=== PATIENT | female | born 1980 | race Caucasian/White ===

== ENCOUNTER 2018-10-25 14:21 | Emergency (ER) | payer SELFPAY ==
--- NOTE | 2018-10-25 14:28 | PDOC ---
Rapid Medical Evaluation Time Seen by Provider: 10/25/18 14:25 Medical Evaluation: 10/25/18 14:25 I have briefly examined the patient Pt reports she is 12 weeks and had vaginal bleeding last night. States that she passed a blood clot and she is concerned she had a miscarriage. States she had an US in August which confirmed an IUP. LMP: 07/28/18 Exam: NAD, ambulatory Orders: labs, urine TVUS Pt to proceed to the ER for further evaluation Discharge Disposition - Diagnosis Vaginal bleeding - Referrals - Patient Instructions - Post Discharge Activity
[2018-10-25 14:32] VITALS: BP 116/75; PULSE 80; TEMP 98.2; BMI 21.5
--- NOTE | 2018-10-25 15:25 | PDOC ---
History of Present Illness - General Chief Complaint: Vaginal Bleeding Stated Complaint: VAGINAL BLEEDING Time Seen by Provider: 10/25/18 14:25 - History of Present Illness Initial Comments: Ele Ayers is an otherwise healthy 38yo woman at 12wks by US (completed in August at outpatient OB) who presents with 2 weeks of painless light vaginal spotting, now reporting much heavier bleeding with clots this morning. She states that she tried to see her OB for the spotting, but due to change in insurance was unable to make an appointment. She has not yet been able to establish care with a new OB. She was not overly concerned about the spotting due to having no associated symptoms, but she states that the bleeding today was a significant change. The bleeding was dark red w/ several large clots. She has had continued bleeding throughout the day. Ms Nunez continues to deny any abdominal or back pain. with the vaginal bleeding. She reports that her first was uncomplicated, and she has not had any problems so far with the current . Past History - Past Medical History Allergies/Adverse Reactions: Allergies Allergy/AdvReac Type Severity Reaction Status Date / Time No Known Allergies Allergy Verified 10/25/18 14:27 Home Medications: Ambulatory Orders NK [No Known Home Medication] 10/25/18 - Suicide/Smoking/Psychosocial Hx Smoking History: Never smoked Review of Systems - Review of Systems Comments:: General: No fevers, no chills, no weight or appetite change, no malaise HEENT: No changes in vision, no changes in hearing, no congestion, no sore throat CV: No chest pain, no palpitations, no LE edema Pulm: No SOB, no cough, no wheezing GI: No nausea or vomiting, no change in bowel habits, no melena : No frequency, no urgency, no dysuria Musc: No back pain, no joint swelling, no recent injury Skin: No rash, no lesions, no erythema Endo: No excessive thirst, no heat/cold intolerance Heme: No unusual bruising or bleeding, no swollen glands Neuro: No syncope, no numbness/tingling, no focal weakness Vasc: No claudication Psych: No recent change in mood, no SI or HI *Physical Exam - Vital Signs Last Vital Signs Temp Pulse Resp BP Pulse Ox 98.2 F 80 18 116/75 98 10/25/18 14:23 10/25/18 14:23 10/25/18 14:23 10/25/18 14:23 10/25/18 14:23 - Physical Exam Comments: General: Comfortable, no acute distress HEENT: PERRL, EOMI, MMM, voice normal, normal neck ROM, no LAD Cards: RRR, no murmur appreciated Pulm: Comfortable on room air, clear to auscultation bilaterally Abd: Soft, nontender, nondistended : Normal external genitalia. Moderate red blood with small clots noted in vaginal canal. No CMT, no adnexal tenderness. Internal os closed to palpation. Ext: Atraumatic. No LE edema. ROM intact. Vasc: Extremities WWP. Skin: Normal color, no rashes or lesions Neuro: A&Ox3, CN grossly intact, normal speech, motor/sensory grossly intact and symmetric Psych: Mood appropriate to situation ED Treatment Course - LABORATORY CBC & Chemistry Diagram: 10/25/18 15:43 10/25/18 15:43 Medical Decision Making - Medical Decision Making 10/25/18 15:25 Attempted to see patient. Has been taken to ultrasound. Will evaluate when returned. 10/25/18 16:10 Seen following return from US Ele Ayers is an otherwise healthy 38yo woman at 12wks gestation by US who presents with heavy vaginal bleeding with large clots this morning after 2 weeks of light spotting. She was seen by OB about 2 months ago but was lost to follow up due to insurance difficulties. - Concerning for threatened v complete v incomplete v missed . Os closed on vaginal exam, so not inevitable - US and labs ordered in [facility]. US completed prior to being seen. Reviewed in ED. No fetus seen, but radiology report pending - Labs to be reviewed when completed. Pt reports her blood type is B+, but confirmation T&S sent. 10/25/18 18:06 - US completed. Shows gestational sac measuring approximately 8 weeks w/o yolk sac. Radiology report suggests anembrionic . Labs notable for bHCG of 90. With patient report of 2 wks of spotting, now passing larger amounts of blood, concerning for demise several weeks ago with passage of products today. Appears to be a complete . - Multiple calls placed to OB, Dr Bates, for recommendations. Have not received call back. Call placed to Dr Vick for assistance in contacting on- call OB. 10/25/18 18:48 - Spoke to Ms Nunez at length regarding the ultrasound and lab findings. She understands the findings and also that she needs to follow up with OB gyne. She and her were visibly upset by the miscarriage. - Type and screen not resulted. Spoke to blood bank, report they need a new sample. After being told about the miscarriage, Ms Nunez declined to remain in the ED for a second T&S to be sent. As stated blood type is B+ would not need rhogam, but advised regarding reasons for completing test. Given thorough information regarding return precautions and OB/gyne referrals for follow up within the next week. Discussed with Sheeba Ho and Rishabh. Yu Oviedo PGY1 10/25/18 18:52 *DC/Admit/Observation/Transfer Diagnosis at time of Disposition: Complete - Discharge Dispostion Disposition: HOME Condition at time of disposition: Stable Decision to Admit order: No - Referrals Referrals: Sri Argueta MD [Staff Physician] - Nery Burgess MD [Staff Physician] - Carson Sloan MD [Staff Physician] - Isela Ortega MD [Staff Physician] - Briseyda Sherman MD [Staff Physician] - Jared Bates MD [Staff Physician] - - Patient Instructions Printed Discharge Instructions: DI for Miscarriage Additional Instructions: Discharge Instructions: You were seen in the ED for vaginal bleeding, and it was found that you had a miscarriage. Based on your ultrasound and lab results, it is most likely that the terminated ( demise) several weeks ago. Miscarriage occurs in up to 15-20% of all pregnancies and is not caused by anything that you did or did not do. Often, it is due to a problem with the itself that cannot be predicted. You should follow up with an OB/gyne doctor within the next week. See the attached list of names to schedule an appointment to make sure you are recovering well. Seek immediate care if you have continued vaginal bleeding that is much heavier than a period, you have abdominal/back pain that cannot be controlled with ibuprofen/acetaminophen at home, you have severe nausea or vomiting, you have fevers to 101F, you have foul-smelling vaginal discharge, or you have any sign of infection. - Post Discharge Activity
--- NOTE | 2018-10-25 16:24 | PDOC ---
Documentation entered by Ward Awan SCRIBE, acting as scribe for See Ho MD. See Ho MD: This documentation has been prepared by the Emperatriz sage Renju, SCRIBE, under my direction and personally reviewed by me in its entirety. I confirm that the documentation accurately reflects all work, treatment, procedures, and medical decision making performed by me. Attending Attestation - Resident Resident Name: Yu Oviedo - HPI HPI: 10/25/18 16:02 The patient is a 38 year old female, currently 12 weeks , with no past medical history, who presents to the emergency department for evaluation of vaginal bleeding. Patient reports a two week history of painless spotting. She reports waking up this morning, noting a large amount of vaginal bleeding with clots. Patient states she visits the emergency department today due to a concern for a possible miscarriage. 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 Patient denies any other symptoms or pain at this time. - Physicial Exam PE: 10/25/18 16:22 VSS pelvic per resident, os closed, no discharge abd soft/nd. no suprapubic discomfort to palpation, no guarding/rebound - Medical Decision Making 10/25/18 16:23 38y/o F at 12wks gestation with heavy vaginal bleeding with clots and likely POC. HD stable here without heavy active bleeding. labs sent including t+s ultrasound reassess 10/25/18 17:25 labs wnl, hcg 91, suggestive of miscarriage that was not recent. evus with empty sac, will consult [facility]. t+s pending
[2018-10-25 16:25] LABS: BASO % 0.8 % (0-2.0); EOS % 2.3 % (0-4.5); HEMATOCRIT 40.7 % (32.4-45.2); HEMOGLOBIN 13.5 GM/dL (10.7-15.3); MCH 30.2 pg (25.7-33.7); MCHC 33.2 g/dl (32.0-36.0); MEAN CELL VOLUME 90.9 fl (80-96); MEAN PLT VOLUME 8.5 fl (7.5-11.1); NEUT % 53.9 % (42.8-82.8); PLATELET COUNT 196 K/MM3 (134-434); RBC 4.47 M/mm3 (3.60-5.2); RDW 13.7 % (11.6-15.6); WHITE BLOOD COUNT 5.1 K/mm3 (4.0-10.0)
[2018-10-25 16:33] LABS: EPI CELLS 0.7 /HPF (0-5/HPF); URINE APPEARANCE CLEAR; URINE BACTERIA 3.4 /hpf (NEGATIVE); URINE BILIRUBIN NEGATIVE (NEGATIVE); URINE CASTS 3 /lpf (0-8); URINE COLOR YELLOW; URINE GLUCOSE (UA) NEGATIVE (NEGATIVE); URINE KETONE 1+ (NEGATIVE); URINE LEUK ESTERASE NEGATIVE (NEGATIVE); URINE NITRITE NEGATIVE (NEGATIVE); URINE PROTEIN NEGATIVE (NEGATIVE); URINE RBC 61 /hpf (0-4); URINE UROBILINOGEN 0.2 mg/dL (0.2-1.0); URINE WBC 1 /hpf (0-5)
[2018-10-25 17:10] LABS: ALBUMIN 3.9 g/dl (3.4-5.0); BILIRUBIN,TOTAL 0.3 mg/dL (0.2-1); CALCIUM 8.9 mg/dL (8.5-10.1); CREATININE 0.6 mg/dL (0.55-1.3); POTASSIUM 3.7 mmol/L (3.5-5.1); TOT PROT 7.4 g/dl (6.4-8.2)
== END 2018-10-25 19:15 | disposition home or self-care (01) ==
LOC: JER 14:21
DX: O03.9 Complete or unspecified spontaneous abortion without complication (principal)
CPT/HCPCS: 36415; 76817-TC; 80053; 81003; 84702; 85025; 87086; 99281-25